=== PATIENT | female | born 1965 | race Caucasian/White ===

== ENCOUNTER 2018-02-07 07:22 | Day surgery (SDC) | payer OTHER ==
[2018-02-07 08:26] LABS: ADD MAN DIFF? NO
[2018-02-07 08:31] LABS: WHITE BLOOD COUNT 10.5 10^3/ul (4.8-10.8)
[2018-02-07 08:31] LABS: BASOPHIL # 0.1 10^3/ul (0.0-0.1); BASOPHILS % 0.6 % (0.0-2.0); EOSINOPHILS # 1.7 10^3/ul (0.0-0.5); EOSINOPHILS % 16.5 % (0.0-7.0); HEMATOCRIT 40.6 % (37.0-47.0); HEMOGLOBIN 13.3 g/dl (12.0-16.0); LYMPHOCYTES # 2.7 10^3/ul (0.8-2.9); LYMPHOCYTES % 25.6 % (15.0-51.0); MEAN CORPUSCULAR HEMOGLOBIN 28.7 pg (29.0-33.0); MEAN CORPUSCULAR HGB CONC 32.8 g/dl (32.0-37.0); MEAN CORPUSCULAR VOLUME 87.7 fl (82.0-101.0); MONOCYTE # 0.6 10^3/ul (0.3-0.9); MONOCYTES % 5.4 % (0.0-11.0); NEUTROPHIL # 5.4 10^3/ul (1.6-7.5); NEUTROPHILS % 51.4 % (39.0-77.0); PLATELET COUNT 189 10^3/UL (140-415); RED BLOOD COUNT 4.63 10^6/ul (4.20-5.40)
[2018-02-07] MEDS ORDERED: LIDOCAINE 1% (MDV) 10 ML INJ (08:48)
[2018-02-07] MEDS ORDERED: IODIXANOL LOCM 100 ML BTL (08:48)
[2018-02-07 08:50] LABS: ALANINE AMINOTRANSFERASE 30 IU/L (13-69); ALBUMIN 4.7 g/dl (3.3-4.9); ALBUMIN/GLOBULIN RATIO 1.46; ALKALINE PHOSPHATASE 64 IU/L (42-121); ANION GAP 15 (8-16); ASPARTATE AMINO TRANSFERASE 24 IU/L (15-46); BILIRUBIN,INDIRECT 0.4 mg/dl (0-1.1); BILIRUBIN,TOTAL 0.4 mg/dl (0.2-1.3); BLOOD UREA NITROGEN 17 mg/dl (7-20); CALCIUM 9.9 mg/dl (8.4-10.2); CARBON DIOXIDE 24 mmol/L (21-31); CHLORIDE 107 mmol/L (97-110); CHOL/HDL RATIO 4.8 RATIO; CHOLESTEROL 222 mg/dl (100-200); CREATININE 0.69 mg/dl (0.44-1.00); GLUCOSE 231 mg/dl (70-220); HDL CHOLESTEROL 46 mg/dl (37-92); LDL CHOLESTEROL,CALCULATED 131 mg/dl; POTASSIUM 4.2 mmol/L (3.5-5.1); PROTIME 12.2 Sec (11.9-14.9); SODIUM 142 mmol/L (135-144); TOTAL PROTEIN 7.9 g/dl (6.1-8.1); TRIGLYCERIDES 224 mg/dl (0-149)
[2018-02-07 08:51] LABS: PARTIAL THROMBOPLASTIN TIME 24.7 Sec (25.0-35.0)
[2018-02-07] MEDS ORDERED: FENTAnyl 50 MCG/ML VIAL (09:07)
[2018-02-07] MEDS ORDERED: MIDAZOLAM 1 MG/ML 2 ML INJ (09:07)
[2018-02-07] MEDS ORDERED: HEPARIN 1000 UNITS/ML 10 ML INJ (09:13)
[2018-02-07] MEDS ORDERED: VERAPAMIL 5 MG INJ (09:13)
[2018-02-07] MEDS ORDERED: NITROGLYCERIN (IC) 100 MCG/ML INJ (09:13)
[2018-02-07] MEDS ORDERED: SOD CHLORIDE 0.9% 1,000 ML IV (10:00)
[2018-02-07] MEDS ORDERED: morphine 2 MG INJ IV (10:00)
[2018-02-07] MEDS ORDERED: ONDANSETRON 4 MG INJ IV (10:00)
[2018-02-07] MEDS ORDERED: ACETAMINOPHEN 325 MG TAB PO (10:00)
[2018-02-07] MEDS ORDERED: AL HYDROX/MG HYDROX/SIMETH 30 ML CUP PO (10:00)
== END 2018-02-07 15:05 | disposition home or self-care (01) ==
LOC: SDS 07:22
DX: I25.10 Atherosclerotic heart disease of native coronary artery without angina pectoris (principal); I10 Essential (primary) hypertension; E78.5 Hyperlipidemia, unspecified; E11.9 Type 2 diabetes mellitus without complications; R94.39 Abnormal result of other cardiovascular function study
CPT/HCPCS: 71045; 80053; 80061; 82962; 85025; 85610; 85730; 93005; 93458

== ENCOUNTER 2018-02-08 21:58 | Emergency (ER) | payer OTHER ==
[2018-02-09] MEDS: DIPHENHYDRAMINE 50 MG INJ IV (00:09)
[2018-02-09] MEDS: FAMOTIDINE 20 MG INJ IV (00:09)
[2018-02-09] MEDS: SOD CHLORIDE 0.9% 1,000 ML IV (00:09)
[2018-02-09] MEDS: METHYLPREDNISOLONE 125 MG INJ IV (00:09)
[2018-02-09 00:24] LABS: ADD MAN DIFF? NO
[2018-02-09 00:26] LABS: WHITE BLOOD COUNT 11.2 10^3/ul (4.8-10.8)
[2018-02-09 00:26] LABS: BASOPHIL # 0.1 10^3/ul (0.0-0.1); BASOPHILS % 0.5 % (0.0-2.0); EOSINOPHILS # 1.9 10^3/ul (0.0-0.5); EOSINOPHILS % 17.2 % (0.0-7.0); HEMATOCRIT 40.3 % (37.0-47.0); HEMOGLOBIN 13.5 g/dl (12.0-16.0); LYMPHOCYTES # 2.8 10^3/ul (0.8-2.9); LYMPHOCYTES % 25.2 % (15.0-51.0); MEAN CORPUSCULAR HEMOGLOBIN 29.5 pg (29.0-33.0); MEAN CORPUSCULAR HGB CONC 33.5 g/dl (32.0-37.0); MEAN CORPUSCULAR VOLUME 88.2 fl (82.0-101.0); MONOCYTE # 0.6 10^3/ul (0.3-0.9); MONOCYTES % 4.9 % (0.0-11.0); NEUTROPHIL # 5.8 10^3/ul (1.6-7.5); PLATELET COUNT 211 10^3/UL (140-415); RED BLOOD COUNT 4.57 10^6/ul (4.20-5.40)
[2018-02-09 00:59] LABS: ALANINE AMINOTRANSFERASE 30 IU/L (13-69); ALBUMIN 4.7 g/dl (3.3-4.9); ALBUMIN/GLOBULIN RATIO 1.46; ALKALINE PHOSPHATASE 63 IU/L (42-121); ANION GAP 14 (8-16); ASPARTATE AMINO TRANSFERASE 21 IU/L (15-46); BILIRUBIN,INDIRECT 0.3 mg/dl (0-1.1); BILIRUBIN,TOTAL 0.3 mg/dl (0.2-1.3); BLOOD UREA NITROGEN 22 mg/dl (7-20); CALCIUM 10.4 mg/dl (8.4-10.2); CARBON DIOXIDE 25 mmol/L (21-31); CHLORIDE 108 mmol/L (97-110); CREATININE 0.85 mg/dl (0.44-1.00); GLUCOSE 99 mg/dl (70-220); POTASSIUM 3.6 mmol/L (3.5-5.1); SODIUM 143 mmol/L (135-144); TOTAL PROTEIN 7.9 g/dl (6.1-8.1)
== END 2018-02-09 01:50 | disposition home or self-care (01) ==
LOC: FTE 21:58
DX: R21 Rash and other nonspecific skin eruption (principal); I10 Essential (primary) hypertension; Z79.84 Long term (current) use of oral hypoglycemic drugs
CPT/HCPCS: 36415; 80053; 85025; 96374; 96375; 99284-25